=== PATIENT | female | born 1990 | race Caucasian/White ===

== ENCOUNTER 2016-10-09 11:42 | Emergency (ER) | payer MEDICAID ==
[2016-10-09 11:52] VITALS: BP 150/100; PULSE 107; RESP 15; TEMP 99; O2SAT 97
--- NOTE | 2016-10-09 11:55 | EDPHY ---
H & P Stated Complaint: cough for a week HPI/ROS: Chief Complaint: Cough HPI: 26-year-old female presenting with 1 week of cough which is worsening productive of greenish-yellow sputum and fevers to 100 at home. Patient does have wheezing. She is a smoker of both marijuana and cigarettes daily. No nausea or vomiting. No chest pain. Some shortness of breath with cough. ROS: 10 point Review of Systems is negative except as noted in the HPI. PMH: None Past surgical history: Cholecystectomy Medications: None Allergies: No known drug allergies Social History: Positive smoking, positive alcohol, daily marijuana Family History: non-contributory Physical Exam: Gen: Awake, Alert, No Distress HEENT: Nose: no rhinorrhea Eyes: PERRLA, EOMI Mouth: Moist mucosa Neck: Supple, no JVD Chest: nontender, diffuse expiratory wheezing Heart: S1, S2 normal, no murmur Abd: Soft, non-tender, no guarding Back: no CVA tenderness, no midline tenderness Ext: no edema, non-tender Skin: no rash Neuro: CN II-XII intact, Sensation grossly intact, Strength 5/5 in bilateral upper and lower extremities - Personal History LMP (Females 10-55): 8-14 Days Ago Current Tetanus Diphtheria and Acellular Pertussis (TDAP): Yes - Medical/Surgical History Hx Asthma: No Hx Chronic Respiratory Disease: No Hx Diabetes: No Hx Cardiac Disease: No Hx Renal Disease: No Hx Cirrhosis: No Hx Alcoholism: No Hx HIV/AIDS: No Hx Splenectomy or Spleen Trauma: No Other PMH: CHOLECYSTECTOMY - Social History Smoking Status: Current every day smoker Constitutional: Initial Vital Signs Temperature (C) 37.2 C 10/09/16 11:51 Heart Rate 107 H 10/09/16 11:51 Respiratory Rate 15 10/09/16 11:51 Blood Pressure 150/100 H 10/09/16 11:51 O2 Sat (%) 97 10/09/16 11:51 O2 Delivery Mode Room Air Allergies/Adverse Reactions: No Known Allergies Allergy (Verified 10/09/16 11:51) Home Medications: Medication Instructions Recorded Albuterol [Proventil Inhaler HFA 1 - 2 puffs IH Q4H #1 mdi 05/23/16 (*)] guaiFENesin/CODEINE PHOS 10 ml PO Q4-6PRN PRN #120 ml 05/23/16 [Robitussin AC oral liquid (RX)] Doxycycline Hyclate 100 mg PO BID #20 tablet 10/09/16 Inhaler, Assist Devices [Space 1 each MC Q4H PRN #1 spacer 10/09/16 Chamber Plus] Departure - Departure Disposition: Home, Routine, Self-Care Clinical Impression: Acute bronchitis Condition: Good Instructions: Acute Bronchitis (ED) Additional Instructions: Use your inhaler, 2 puffs every 4 hours with spacer as needed for wheeze and cough. Follow up with primary care physician in 3-4 days if symptoms are not improving. Take your full course of antibiotics. Referrals: [facility] [Outside] - As per Instructions Stand Alone Forms: Work Excuse Prescriptions: Doxycycline Hyclate 100 mg PO BID #20 tablet Inhaler, Assist Devices [Space Chamber Plus] 1 each MC Q4H PRN #1 spacer PRN Reason: Wheezing
== END 2016-10-09 12:21 | disposition home or self-care (01) ==
LOC: CED 11:42
DX: J20.9 Acute bronchitis, unspecified (principal); F17.200 Nicotine dependence, unspecified, uncomplicated

== ENCOUNTER 2017-01-06 20:37 | Emergency (ER) | payer MEDICAID ==
[2017-01-06 21:01] VITALS: BP 140/87; PULSE 100; RESP 14; TEMP 98.6; O2SAT 96
[2017-01-06] MEDS ORDERED: ACETAMINOPHEN 500 MG TAB PO ONE (21:20)
[2017-01-06] MEDS ORDERED: traMADol 50 MG TAB PO ONE (21:20)
--- NOTE | 2017-01-06 21:28 | EDPHY ---
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 Starting 4 days ago she started getting aching in the forearm volar aspect with onset of swelling the same region that causes pain to radiate into the hand and started causing paresthesias to the fingers. She describes now sharp pain that radiates from the forearm to the hand worse with finger or hand motion. She has never had this occur to her before. She took 600 mg of ibuprofen at 5:15 a.m. tonight with minimal improvement and notes no other exacerbating or alleviating factors. She is right-hand dominant. 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 She does report heavy repetitive activity of chopping etc with a right hand at work. ROS: Constitutional: No complaints no other joint pain or extremity complaints.No fevers neuro: Numbness and tingling to the right hand as mentioned in HPI. Cardiovascular: No significant pallor change in color to the affected extremity Musculoskeletal: No recent trauma than repetitive motions at work. no cervical complaints 5 point ROS is otherwise negative. Past Medical/Surgical History: Obesity Social History: occasional marijuana. no other drug use. Rare alcohol Smoking Status: Heavy smoker Physical Exam: Physical Exam Vital signs are normal. General: No acute distress Eyes: Pupils equal and react to light. Extraocular motions are intact. Cardiac: Brisk capillary refill is intact throughout. Pulses are 2+ and symmetric in the affected extremity. Skin: No rash or pallor. Extremities: Atraumatic normal except for right upper extremity Right upper extremity: Patient has positive Phalen's test positive Tinel's. She has tenderness to the volar aspect of the wrist and tenderness of the volar forearm with perhaps very mild swelling. Neuro: Alert with no Diminished light touch sensory exam to the palmar hand and fingers -preserved in the dorsum of the hand. She has weak AB duction of the fingers flexion extension but difficult to establish this is primarily due to pain or an actual motor deficit. No other sensorimotor deficits. initial differential diagnosis: Carpal tunnel syndrome, forearm strain, other nerve impingement Constitutional: Initial Vital Signs Temperature (C) 37 C 01/06/17 20:55 Heart Rate 100 01/06/17 20:55 Respiratory Rate 14 01/06/17 20:55 Blood Pressure 140/87 H 01/06/17 20:55 O2 Sat (%) 96 01/06/17 20:55 O2 Delivery Mode Room Air Allergies/Adverse Reactions: No Known Allergies Allergy (Verified 01/06/17 21:11) Home Medications: Medication Instructions Recorded Etonogestrel/Ethinyl Estradiol 01/06/17 [Nuvaring Vaginal Ring] Ibuprofen [Motrin (*)] 600 mg PO Q6 PRN #30 tab 01/06/17 traMADol [Ultram 50 mg (*)] 50 - 100 mg PO Q4 PRN #20 tab 01/06/17 MDM/Departure - MDM Medications Given: Discontinued Medications Acetaminophen (Tylenol) 1,000 mg PO EDNOW ONE Stop: 01/06/17 21:21 Last Admin: 01/06/17 21:29 Dose: 1,000 mg Tramadol HCl (Ultram) 50 mg PO EDNOW ONE Stop: 01/06/17 21:21 Last Admin: 01/06/17 21:29 Dose: 50 mg ED Course/Re-evaluation: findings are most consistent with carpal tunnel syndrome both by history, and physical exam. I counseled patient regarding this. She is placed in a Velcro splint for mobilization, we will start her on ibuprofen, Tylenol and tramadol if needed for pain control plan hold off on more for the next 2 days and follow up with work comp clinic. I think this is a work related injury with symptoms started 4 days prior to arrival on January 02 - Disposition: Home, Routine, Self-Care Clinical Impression: Carpal tunnel syndrome Qualifiers: Laterality: right Qualified Code(s): G56.01 - Carpal tunnel syndrome, right upper limb Condition: Good Instructions: Paresthesia (ED) Additional Instructions: Diagnosis: Carpal tunnel syndrome This injury is caused by tendon inflammation related to your work. Plan: Ibuprofen - 600 mg per 6 hours as needed for pain Tylenol in addition if needed Tramadol in addition if needed. No driving, alcohol or come tramadol. No work for the next 2 days. 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 Referrals: Doctor Beti,On Staff, [Primary Care Provider] - As per Instructions Shaista Ma MD [Medical Doctor] - As per Instructions
== END 2017-01-06 21:50 | disposition home or self-care (01) ==
LOC: CED 20:37
DX: G56.01 Carpal tunnel syndrome, right upper limb (principal); F17.200 Nicotine dependence, unspecified, uncomplicated
CPT/HCPCS: L3807

== ENCOUNTER → 2017-01-27 | Outpatient (CLI) | payer OTHER | LOC: CIMAGING 10:37 | PROVIDERS: ATTEND Physical Medicine & Rehabilitation | DX: M79.641 Pain in right hand (principal); M79.642 Pain in left hand; Y99.0 Civilian activity done for income or pay | CPT/HCPCS: 73110-PO ==